=== PATIENT | male | born 1950 ===

== ENCOUNTER 2017-07-02 07:59 | Outpatient (CLI) | payer OTHER ==
[~2017-07-02] VITALS: Ht 170.2 cm; Wt 84.4 kg
[2017-07-02] MEDS ORDERED: ZANTAC300 MG PO (10:43)
[2017-07-02] MEDS ORDERED: FLONASE16 GM NASAL (10:43)
[2017-07-02] MEDS ORDERED: OMEPRAZOLE40 MG PO (10:43)
== END 2017-07-02 08:15 | disposition home or self-care (01) ==
LOC: OFIC 805 07:59
DX: R05 Cough (principal); J37.0 Chronic laryngitis; J33.8 Other polyp of sinus; R49.8 Other voice and resonance disorders; H61.23 Impacted cerumen, bilateral